=== PATIENT | female | born 1930 | race Caucasian/White ===

== ENCOUNTER 2018-07-09 18:37 | Emergency (ER) | payer MEDICARE, OTHER ==
[~2018-07-09] VITALS: Ht 149.9 cm; Wt 65.9 kg
[~2018-07-09 18:37] MED LIST: CEPH-443 PO; DOCU-144 PO; HYDR-4011 PO
[2018-07-09 18:47] VITALS: Ht 149.9 cm; Wt 65.9 kg
--- NOTE | 2018-07-09 22:18 | ERD ---
ER Documentation Chief Complaint Chief Complaint C/O RT FLANK PAIN X1 WEEK HPI The patient is a 87-year-old female, presenting to the ER because of acute right flank pain intermittently for 1 week, worse today, had similar symptoms p reviously, complains of constipation. She denies fever, chills, neck pain, chest pain, dyspnea, dysuria, hematuria. She does not smoke nor drink Medical history: GERD, dyslipidemia, vertigo Past surgical history: Appendectomy, cholecystectomy ROS All systems reviewed and are negative except as per history of present illness. Medications Home Meds Active Scripts Ibuprofen* (Motrin*) 400 Mg Tab, 400 MG PO Q6H PRN for PAIN AND OR ELEVATED TE MP, #20 TAB Prov:DAVID MAN MD 07/10/18 Reported Medications Pyridoxine Hcl* (Vitamin B-6*) 250 Mg Tablet, 250 MG PO DAILY, TAB 07/10/18 Meloxicam* (Mobic*) 15 Mg Tablet, 15 MG PO DAILY, #30 TAB 07/10/18 Ergocalciferol (Vitamin D2) (VITAMIN D2) 50,000 Unit Capsule, 52163 UNIT PO QMON, CAP 07/10/18 Discontinued Scripts Docusate Sodium* (Colace*) 100 Mg Capsule, 100 MG PO TID, #30 CAP Prov:LITTAMARA NEVES C 02/28/16 Hydrocodone/Acetaminophen ([place] 5-325 Tablet) 1 Each Tablet, 1 TAB PO Q6H PRN for PAIN, #10 TAB Prov:LITTAMARA NEVES C 02/28/16 Cephalexin* (Keflex*) 500 Mg Capsule, 500 MG PO BID for 7 Days, CAP Prov:LIT,TAMARA C 02/28/16 Allergies Allergies: Coded Allergies: No Known Allergy (Unverified , 07/10/18) PMhx/Soc History of Surgery: Yes (APPY, JUN) Anesthesia Reaction: No Hx Neurological Disorder: No Hx Respiratory Disorders: No Hx Cardiac Disorders: No Hx Psychiatric Problems: No Hx Miscellaneous Medical Probl: Yes (GERD, HIGH CHOLESTEROL, ARTHRITIS) Hx Alcohol Use: No Hx Substance Use: No Hx Tobacco Use: No Smoking Status: Never smoker Physical Exam Vitals Vital Signs Date Temp Pulse Resp B/P (MAP) Pulse Ox O2 O2 Flow FiO2 Time Delivery Rate 07/10/18 98.7 79 16 112/53 96 Room Air 01:19 (72) 07/09/18 78 17 144/76 97 Room Air 21:45 (98) 07/09/18 98.2 109 20 152/97 97 18:47 (115) Physical Exam Const: No acute distress. Head: Atraumatic. Eyes: Normal Conjunctiva. ENT: Normal External Ears, Nose and Mouth. Neck: Full range of motion. No meningismus. Resp: Clear to auscultation bilaterally. Cardio: Regular rate and rhythm. Abd: Soft, non distended, normal bowel sounds, mild right flank tenderness, no right lower quadrant, right upper quadrant, rigidity, rebound or CVA tenderness Skin: No petechiae or rashes. Back: No midline or flank tenderness. Ext: No cyanosis, or edema. Neur: Awake and alert. No focal deficit Psych: Normal Mood and Affect. Result Diagram: 07/09/18214407/[id number]/182144 Results 24 hrs Laboratory Tests Test 07/09/18 21:45 07/09/18 22:17 White Blood Count 7.2 10^3/ul Red Blood Count 5.28 10^6/ul Hemoglobin 14.9 g/dl Hematocrit 46.5 % Mean Corpuscular Volume 88.1 fl Mean Corpuscular Hemoglobin 28.2 pg Mean Corpuscular Hemoglobin Concent 32.0 g/dl Red Cell Distribution Width 14.6 % Platelet Count 211 10^3/UL Mean Platelet Volume 12.0 fl Immature Granulocytes % 0.300 % Neutrophils % 59.6 % Lymphocytes % 33.0 % Monocytes % 5.1 % Eosinophils % 1.2 % Basophils % 0.8 % Nucleated Red Blood Cells % 0.0 /100WBC Immature Granulocytes # 0.020 10^3/ul Neutrophils # 4.3 10^3/ul Lymphocytes # 2.4 10^3/ul Monocytes # 0.4 10^3/ul Eosinophils # 0.1 10^3/ul Basophils # 0.1 10^3/ul Nucleated Red Blood Cells # 0.0 10^3/ul Sodium Level 142 mmol/L Potassium Level 4.0 mmol/L Chloride Level 102 mmol/L Carbon Dioxide Level 32 mmol/L Anion Gap 8 Blood Urea Nitrogen 15 mg/dl Creatinine 0.56 mg/dl Est Glomerular Filtrat Rate mL/min mL/min Glucose Level 106 mg/dl Calcium Level 9.9 mg/dl Total Bilirubin 0.2 mg/dl Direct Bilirubin 0.00 mg/dl Indirect Bilirubin 0.2 mg/dl Aspartate Amino Transf (AST/SGOT) 31 IU/L Alanine Aminotransferase (ALT/SGPT) 18 IU/L Alkaline Phosphatase 72 IU/L Total Protein 7.8 g/dl Albumin 4.4 g/dl Globulin 3.40 g/dl Albumin/Globulin Ratio 1.29 Lipase 46 U/L Bedside Urine pH (LAB) 5.5 Bedside Urine Protein (LAB) Negative Bedside Urine Glucose (UA) Negative Bedside Urine Ketones (LAB) Negative Bedside Urine Blood Negative Bedside Urine Nitrite (LAB) Negative Bedside Urine Leukocyte Esterase (L Negative Current Medications Medications Dose Sig/[place] Start Time Status Last (Trade) Ordered Route PRN Stop Time Admin Dose Reason Admin Morphine 2 mg ONCE STAT 07/09/18 DC 07/09/18 Sulfate IV 22:40 22:47 (morphine) 07/09/18 22:41 Ondansetron 4 mg ONCE STAT 07/09/18 DC 07/09/18 HCl (Zofran IV 22:40 22:47 Inj) 07/09/18 22:41 Procedures/MDM Abdominal pelvic CT per radiologist did not show any acute abnormality MEDICAL MAKING DECISION: The patient is a 87-year-old female, presenting with acute right flank pain of unclear etiology, was treated with morphine 2 mg IV for pain, Zofran 4 mg IV for nausea with good response, is stable for outpatient follow-up The differential diagnoses considered include but are not limited to choledocholithiasis, cholangitis, pancreatitis, hepatitis, gastritis, peptic ulcer disease, gastric ulcer, cystitis, diverticulitis, partial small bowel obstruction. Departure Diagnosis: Primary Impression: Flank pain Condition: Good Comments She was discharged with Motrin I discussed the findings with the patient. I advised the patient to follow-up with the primary physician in about 1-2 days, sooner if needed and return if any concern. Disclaimer: Inadvertent spelling and grammatical errors are likely due to EHR/dictation software use and do not reflect on the overall quality of patient care. Also, please note that the electronic time recorded on this note does not necessarily reflect the actual time of the patient encounter. DAVID MAN MD Jul 09, 2018 22:18
[2018-07-09] MEDS ORDERED: morphine 2 MG INJ IV STA (22:40)
[2018-07-09] MEDS ORDERED: ONDANSETRON 4 MG INJ IV STA (22:40)
[2018-07-10] MEDS ORDERED: IBUP-1561 PO (01:09)
[2018-07-10 01:19] VITALS: BP 112/53; PULSE 79; RESP 16
[2018-07-10] MEDS ORDERED: MELO15TA30 PO (01:27)
[2018-07-10] MEDS ORDERED: PYRI250T7 PO (01:27)
[2018-07-10] MEDS ORDERED: ERGO500013 PO (01:27)
== END 2018-07-10 01:24 | disposition home or self-care (01) ==
LOC: E/R 18:37
DX: R10.9 Unspecified abdominal pain (principal)
CPT/HCPCS: 36415; 74176; 80053; 81003; 83690; 85025; 96374; 96375; 99285; J2270; J2405